=== PATIENT | male | born 1985 | race Caucasian/White ===

== ENCOUNTER 2017-09-01 11:08 | Emergency (ER) | payer OTHER ==
[2017-09-01 11:36] VITALS: BP 111/73; PULSE 81; TEMP 98.2; BMI 20.6
[2017-09-01] MEDS ORDERED: ACETAMINOPHEN 500 MG TABLET (FP) PO ONE (12:02)
--- NOTE | 2017-09-01 12:08 | PDOC ---
History of Present Illness - General Chief Complaint: Injury Stated Complaint: INJURY Time Seen by Provider: 09/01/17 11:56 History Source: Patient Exam Limitations: No Limitations - History of Present Illness Initial Comments: 09/01/17 12:08 32-year-old man with past medical history of cartilage repair of left knee who presents to emergency room with left foot pain status post lumbar falling on it. Patient states would was use to help brace hyping which broke and subsequently fell and struck him on the top of his left foot. Patient was not wearing steel toed boots. Patient is not taking any medication or applied ice to affected area. Ambulatory in to emergency department. Past History - Past Medical History Allergies/Adverse Reactions: Allergies Allergy/AdvReac Type Severity Reaction Status Date / Time hydromorphone Allergy Verified 09/01/17 11:30 Iodinated Contrast- Oral and Allergy Verified 09/01/17 11:30 IV Dye morphine Allergy Verified 09/01/17 11:30 tramadol Allergy Verified 09/01/17 11:30 Home Medications: Ambulatory Orders NK [No Known Home Medication] 09/01/17 COPD: No DVT: No Dementia: No - Immunization History Immunization Up to Date: Yes - Suicide/Smoking/Psychosocial Hx Smoking History: Never smoked Hx Alcohol Use: No Drug/Substance Use Hx: No Substance Use Type: None Review of Systems - Review of Systems Able to Perform ROS?: Yes Is the patient limited Wolof proficient: No Constitutional: No: Symptoms Reported HEENTM: No: Symptoms Reported Respiratory: No: Symptoms reported Cardiac (ROS): No: Symptoms Reported ABD/GI: No: Symptoms Reported : No: Symptoms Reported Musculoskeletal: Yes: See HPI Integumentary: No: Symptoms Reported Neurological: No: Symptoms reported Endocrine: No: Symptoms Reported Hematologic/Lymphatic: No: Symptoms Reported *Physical Exam - Vital Signs Last Vital Signs Temp Pulse Resp BP Pulse Ox 98.2 F 81 16 111/73 95 09/01/17 11:31 09/01/17 11:31 09/01/17 11:31 09/01/17 11:31 09/01/17 11:31 - Physical Exam General Appearance: Yes: Appropriately Dressed. No: Apparent Distress HEENT: positive: Normal ENT Inspection Neck: positive: Trachea midline, Supple Respiratory/Chest: positive: Lungs Clear, Normal Breath Sounds. negative: Respiratory Distress, Accessory Muscle Use Cardiovascular: positive: Regular Rhythm, Regular Rate Gastrointestinal/Abdominal: positive: Soft. negative: Tender Musculoskeletal: negative: CVA Tenderness Extremity: positive: Inflammation (distal portion of left foot), Other (no deformity or crepitus noted. full sensation noted.) Integumentary: positive: Normal Color, Dry, Warm Neurologic: positive: Alert, Normal Response Medical Decision Making - Medical Decision Making 09/01/17 12:09 A/P: 32yo man with acute traumatic injury to left foot. No deformity noted. +DP/PT pulses. No discoloration noted. Full sensation present. Xrays ice tylenol 1g reassess 09/01/17 12:51 X-rays read by me: No acute fracture noted. I'll discharge the patient with strict return precautions. I discussed the physical exam findings, ancillary test results and final diagnoses with the patient. I answered all of the patient's questions. The patient was satisfied with the care received and felt comfortable with the discharge plan and treatment plan. The patient will call his doctor within 96 hours to arrange follow-up and will return to the Emergency Department with any new, persistent or worsening symptoms. *DC/Admit/Observation/Transfer Diagnosis at time of Disposition: Foot pain, right - Discharge Dispostion Disposition: HOME Condition at time of disposition: Stable Admit: No - Referrals Referrals: ON STAFF,NOT [Primary Care Provider] - - Patient Instructions Additional Instructions: Resting injury will help relieve some of the pain. Apply ice for 20 minutes at a time. after 20 minutes remove for a minimum of 20 minutes before reapplying. Use Reagan wrap while awake. Elevate her foot to the level of the heart at all times when not on your feet. Take Tylenol as directed by manufacturers instructions for relief of pain. Return to emergency department for worsening pain, swelling, discoloration, numbness or tingling of your foot or any other concerns. Thank you very much for choosing us to provide your emergent healthcare needs. - Post Discharge Activity Forms/Work/School Notes: Back to Work
== END 2017-09-01 12:58 | disposition home or self-care (01) ==
LOC: JERFT 11:08
DX: S99.822A Other specified injuries of left foot, initial encounter (principal); W20.8XXA Other cause of strike by thrown, projected or falling object, initial encounter; Y93.H3 Activity, building and construction; Y92.69 Other specified industrial and construction area as the place of occurrence of the external cause; Y99.0 Civilian activity done for income or pay
CPT/HCPCS: 73630-TC-LT; 99281-25

== ENCOUNTER 2017-10-17 18:45 | Emergency (ER) | payer OTHER ==
[2017-10-17 18:57] VITALS: BMI 22.1
--- NOTE | 2017-10-17 19:31 | PDOC ---
History of Present Illness - General Chief Complaint: Lightheaded Stated Complaint: FATIGUE Time Seen by Provider: 10/17/17 19:10 History Source: Patient Exam Limitations: No Limitations - History of Present Illness Initial Comments: This is a 32 YOM with h/o COPD, AV calcification, and left knee arthroscopy who p/w continued abdominal pain. He was seen here in the ED yesterday for abdominal pain, lightheadedness, headache, and nausea. He had blood and urine labs showing modest WBC elevation as the only abnormal finding, EKG showing no ischemic changes, CXR showing nothing acute, CT Abdomen/Pelvis showing only mild splenomegaly, US RUQ showing mild gallbladder wall thickening, no additional abnormal findings. The patient was offered observation for continued abdominal pain and lightheadedness which persisted at a low level after medication in the ED. He refused as he has an upcoming court case for custody of his child and had to take him to a legal appointment today. Since yesterday he has has worsening pain shortly after eating pizza and a greasy biscuit. The pain is worse in the RUQ but is also present in the epigastrium and RLQ. Past History - Past Medical History Allergies/Adverse Reactions: Allergies Allergy/AdvReac Type Severity Reaction Status Date / Time hydromorphone Allergy Verified 10/17/17 18:57 Iodinated Contrast- Oral and Allergy Verified 10/17/17 18:57 IV Dye morphine Allergy Verified 10/17/17 18:57 tramadol Allergy Verified 10/17/17 18:57 Home Medications: Ambulatory Orders Albuterol 0.083% Nebulizer [place] [Ventolin 0.083% Nebulizer Soln -] 1 neb NEB Q6H 10/16/17 Salmeterol/Fluticasone [Advair 100Mcg/50Mcg -] 1 inh PO BID 10/16/17 Cardiac Disorders: Yes (aorta calcification) COPD: Yes (emphysema) DVT: No Dementia: No - Immunization History Immunization Up to Date: Yes - Suicide/Smoking/Psychosocial Hx Smoking History: Unknown if ever smoked Hx Alcohol Use: No Drug/Substance Use Hx: No Substance Use Type: None Review of Systems - Review of Systems Able to Perform ROS?: Yes Constitutional: No: Chills, Fever, Unexplained wgt Loss HEENTM: No: Nose Congestion, Throat Pain Respiratory: No: Cough, Shortness of Breath Cardiac (ROS): Yes: Lightheadedness. No: Chest Pain, Palpitations ABD/GI: Yes: Other (abdominal pain). No: Constipated, Diarrhea, Nausea, Vomiting : No: Burning, Dysuria Musculoskeletal: No: Back Pain, Neck Pain Integumentary: No: Bruising, Rash Neurological: No: Headache, Numbness, Tingling, Weakness, Dizziness Endocrine: No: Unexplained Weight Gain, Unexplained Weight Loss *Physical Exam - Vital Signs Last Vital Signs Temp Pulse Resp BP Pulse Ox 98 F 89 18 146/93 99 10/17/17 18:51 10/17/17 18:51 10/17/17 18:51 10/17/17 18:51 10/17/17 18:51 - Physical Exam General Appearance: Yes: Nourished, Appropriately Dressed, Mild Distress, Other (alert, oriented, appears uncomfortable, answers questions appropriately, accompanied by family member at bedside) HEENT: positive: EOMI, VIPIN, Normal Voice, Hearing Grossly Normal, Other (poor dentition). negative: Scleral Icterus (R), Scleral Icterus (L), Nasal Congestion Neck: positive: Trachea midline, Supple. negative: Tender, Rigid Respiratory/Chest: positive: Lungs Clear, Other (slightly decreased breath sounds bilaterally). negative: Respiratory Distress, Crackles, Rhonchi, Stridor , Wheezing Cardiovascular: positive: Regular Rhythm, Regular Rate. negative: Edema, JVD, Murmur Gastrointestinal/Abdominal: positive: Other (normoactive bowel sounds, moderate epigastric and RUQ ttp, +Denise's sign, mild RLQ ttp, no peritoneal signs) Musculoskeletal: positive: Normal Inspection. negative: Decreased Range of Motion, Vertebral Tenderness Extremity: positive: Normal Capillary Refill, Normal Inspection, Normal Range of Motion. negative: Tender, Cyanosis Integumentary: positive: Normal Color, Dry, Warm. negative: Erythema, Rash, Bruising Neurologic: positive: office support associate II-XII NML intact (grossly), Fully Oriented, Alert, Normal Mood/Affect, Normal Response, Motor Strength 5/5. negative: Facial Droop , Numbness, Sensory Deficit, Confused, Disoriented Heart Score/ECG Review #1 ECG reviewed & interpreted by me at: 21:15 EKG shows possible A-flutter, 4:1 conduction, rate of 74, new finding compared with EKG from yesterday. Will repeat EKG. ED Treatment Course - LABORATORY CBC & Chemistry Diagram: 10/17/17 20:40 10/17/17 23:00 Medical Decision Making - Medical Decision Making 32 YOM patient with h/o COPD returns to ED with continued abdominal pain worsened after greasy food today. On exam VS wnl patient in mild distress, poor air movement ? cooperation, poor dentition. Abdominal exam normoactive bowel sounds, moderate epigastric and RUQ ttp, + Denise's sign, mild RLQ ttp. Brace present on left knee. DDX IBNLT cholecystitis, choledocholithiasis, pancreatitis, ascending cholangitis, appendicitis, gastritis, PUD, etc. Ordered is CBCD CMP Lipase Lactate Cardiac panel EKG. 10/17/17 21:23 CMP lipase and cardiac panel hemolyzed and re-ordered. EKG shows possible A-flutter, 4:1 conduction, rate of 74, the flutter is new compared with EKG from yesterday. strategic sourcing specialist ordered. 10/17/17 22:16 Chemistries hemolyzed again; placing another order and re-drawing. 10/18/17 00:32 Labs result essentially wnl. Patient appears comfortable, repeat abdominal exam is benign, but states continued pain. He refused IV pain medication but agrees to try PO Tylenol now. Order for Tylenol placed. Repeating EKG. 10/18/17 00:57 Called lab about UDS and they state that the machine was having problems but running it now. 10/18/17 01:23 Repeat EKG shows NSR the same as his EKG from yesterday's visit. His repeat abdominal exam is benign. Repeat VS are wnl. The patient is appropriate for discharge home with close GI followup. Return precautions are discussed. *DC/Admit/Observation/Transfer Diagnosis at time of Disposition: Splenomegaly Abdominal pain Qualifiers: Abdominal location: unspecified location Qualified Code(s): R10.9 - Unspecified abdominal pain - Discharge Dispostion Disposition: HOME Condition at time of disposition: Stable Admit: No - Referrals Referrals: Jagdeep Kay MD [Staff Physician] - - Patient Instructions Printed Discharge Instructions: DI for Abdominal Pain-Adult Additional Instructions: You were seen in the ER for abdominal pain. We did lab work on your blood and urine and found no abnormalities. We took electrocardiograms, the first one of which may have shown a heart rhythm abnormality. This is why we repeated the electrocardiogram. The repeat was normal. Please take Tylenol, Motrin, or naproxen (Aleve) for the pain. We are giving you referral information for a spa manager doctor that you should follow up with. Please call them on Thursday morning and tell them you were seen in the ER twice. Please also follow up with your regular doctor, or return to the ER for any new or worsening symptoms. If you have any chest pain or heart palpitations please also return. - Post Discharge Activity
[2017-10-17] MEDS ORDERED: SODIUM CHLORIDE 1,000 ML IV STA (19:46)
[2017-10-17] MEDS ORDERED: METOCLOPRAMIDE HCL INJECTION 10 MG/2 ML VIAL IVPUSH ONE (19:46)
[2017-10-17] MEDS ORDERED: ACETAMINOPHEN 1000 MG/100 ML VIAL (NON FORMULARY) IVPB ONE (19:46)
--- NOTE | 2017-10-17 19:49 | PDOC ---
Attending Attestation - Resident Resident Name: ChungGertrude - ED Attending Attestation I have performed the following: I have examined & evaluated the patient, The case was reviewed & discussed with the resident, I agree w/resident's findings & plan - HPI HPI: 10/17/17 19:45 Pt comes with recurrent abdominal pain. States that he ate [employer] pizza today as well as a [employer] egg buiscuit. 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 He has no dysuria , and he moved his bowels normally today. - Physicial Exam PE: 10/17/17 19:48 Agree with resident exam. Pt has rebound and guarding of his abdomen. Pt is afebrile. He has a bad case of seborrhea of his face and urias and scalp. - Medical Decision Making 10/17/17 19:48 Analgesia, repeat labs and admit to med/surg hospitalist for MRCP eval by GI of thickened GB wall. <Gloria Montez - Last Filed: 10/17/17 21:48> Heart Score/ECG Review - ECG Intrepretation Comment:: 10/18/17 01:37 Completed @20:12:02 17-Oct-2017 Normal Sinus Rhythm Septal infarct, age undetermined Abnormal ECG Vent. rate 75 bpm SD interval 184 ms QRS duration 78 ms 10/18/17 01:39 Completed @1:13:36 18-Oct-2017 Normal Sinus rhythm Normal ECG Vent. rate 77 bpm SD interval 186 ms QRS duration 94 ms <Abelardo Newberry - Last Filed: 10/18/17 01:41>
[2017-10-17] MEDS ORDERED: METOCLOPRAMIDE HCL INJECTION 10 MG/2 ML VIAL ONE (20:42)
[2017-10-17] MEDS ORDERED: ACETAMINOPHEN INJECTION 100 ML IVPB ONE (20:42)
[2017-10-17 20:49] LABS: BASO % 0.3 % (0-2.0); EOS % 5.1 % (0-4.5); HEMATOCRIT 45.9 % (35.4-49); HEMOGLOBIN 15.9 GM/dL (11.7-16.9); LYMPH % 32.2 % (8-40); MCH 32.1 pg (25.7-33.7); MCHC 34.6 g/dl (32.0-35.9); MEAN CELL VOLUME 92.7 fl (80-96); MEAN PLT VOLUME 8.5 fl (7.5-11.1); MONO % 6.8 % (3.8-10.2); NEUT % 55.6 % (42.8-82.8); PLATELET COUNT 210 K/MM3 (134-434); RBC 4.95 M/mm3 (4.00-5.60); RDW 12.3 % (11.9-15.9); WHITE BLOOD COUNT 9.2 K/mm3 (4.0-10.0)
[2017-10-17 20:54] LABS: URINE APPEARANCE CLEAR; URINE BILIRUBIN NEGATIVE (NEGATIVE); URINE BLOOD NEGATIVE (NEGATIVE); URINE COLOR STRAW; URINE GLUCOSE (UA) NEGATIVE (NEGATIVE); URINE KETONE NEGATIVE (NEGATIVE); URINE LEUK ESTERASE NEGATIVE (NEGATIVE); URINE NITRITE NEGATIVE (NEGATIVE); URINE PROTEIN NEGATIVE (NEGATIVE); URINE UROBILINOGEN NEGATIVE mg/dL (0.2-1.0)
[2017-10-17] MEDS ORDERED: KETOROLAC TROMETHAMINE 30 MG/1 ML VIAL IVPUSH ONE (21:48)
[2017-10-17 23:25] LABS: ALBUMIN 3.5 g/dl (3.4-5.0); ANION GAP 10 (8-16); BILIRUBIN,TOTAL 0.7 mg/dL (0.2-1.0); BLOOD UREA NITROGEN 8 mg/dL (7-18); CALCIUM 8.5 mg/dL (8.5-10.1); CHLORIDE 107 mmol/L (98-107); CO2 27 mmol/L (21-32); CREATININE 0.8 mg/dL (0.7-1.3); GLUCOSE,RANDOM 94 mg/dL (74-106); LIPASE 182 U/L (73-393); POTASSIUM 3.6 mmol/L (3.5-5.1); SGOT/AST 14 U/L (15-37); SGPT/ALT 17 U/L (12-78); SODIUM 144 mmol/L (136-145); TOT PROT 6.6 g/dl (6.4-8.2)
[2017-10-17 23:26] LABS: ALK PHOS 51 U/L (45-117)
[2017-10-18] MEDS ORDERED: ACETAMINOPHEN 500 MG TABLET (FP) PO ONE (00:31)
[2017-10-18] MEDS ORDERED: ACETAMINOPHEN 325 MG TABLET (FP) ONE (00:44)
[2017-10-18 01:21] LABS: COCAINE, UR NEGATIVE ng/ml (CUTOFF=300); METHADONE, UR NEGATIVE ng/ml (CUTOFF=300); OPIATES, URI NEGATIVE ng/ml (CUTOFF=300); PHENCYCLIDINE,URINE NEGATIVE ng/ml (CUTOFF=25); URINE BARBITURATES NEGATIVE ng/ml (CUTOFF=200); URINE BENZODIAZEPINES NEGATIVE ng/ml (CUTOFF=200)
[2017-10-18 01:52] LABS: URINE AMPHETAMINES NEGATIVE ng/ml (CUTOFF=500)
[2017-10-18 01:54] VITALS: BP 132/77; PULSE 77; TEMP 97.8
--- NOTE | 2017-10-18 23:57 | EKG ---
Test Reason : Blood Pressure : / mmHG Vent. Rate : 077 BPM Atrial Rate : 077 BPM P-R Int : 186 ms QRS Dur : 094 ms QT Int : 372 ms P-R-T Axes : 047 033 027 degrees QTc Int : 420 ms NORMAL SINUS RHYTHM NORMAL ECG WHEN COMPARED WITH ECG OF 17-OCT-2017 20:12, CRITERIA FOR SEPTAL INFARCT ARE NO LONGER PRESENT Confirmed by NEELAM MELCHOR MD ([id number]) on 10/18/2017 11:57:10 PM Referred By: Confirmed By:NEELAM MELCHOR MD
--- NOTE | 2017-10-19 00:09 | EKG ---
Test Reason : Blood Pressure : / mmHG Vent. Rate : 075 BPM Atrial Rate : 075 BPM P-R Int : 184 ms QRS Dur : 078 ms QT Int : 370 ms P-R-T Axes : 024 039 028 degrees QTc Int : 413 ms NORMAL SINUS RHYTHM SEPTAL INFARCT , AGE UNDETERMINED ABNORMAL ECG WHEN COMPARED WITH ECG OF 16-OCT-2017 19:35, SEPTAL INFARCT IS NOW PRESENT Confirmed by NEELAM MELCHOR MD ([id number]) on 10/19/2017 12:09:17 AM Referred By: Confirmed By:NEELAM MELCHOR MD
== END 2017-10-18 02:17 | disposition home or self-care (01) ==
LOC: JER 18:45
PROC: 3E0337Z Introduction of Electrolytic and Water Balance Substance into Peripheral Vein, Percutaneous Approach (ICD-10-PCS; principal; 2017-10-17)
DX: R16.1 Splenomegaly, not elsewhere classified (principal); J43.8 Other emphysema; I35.8 Other nonrheumatic aortic valve disorders
CPT/HCPCS: 36415; 80053; 80307; 81003; 82550; 83605; 83690; 84484; 85025; 93005; 93010; 96360; 99284-25; J7030